=== PATIENT | female | born 1985 | race Caucasian/White ===

== ENCOUNTER 2017-05-15 13:51 | Emergency (ER) | payer OTHER ==
[~2017-05-15] VITALS: Ht 172.7 cm; Wt 50.1 kg
[~2017-05-15 13:51] MED LIST: ALBUTEROL SULF8.5 GM IH; ELMIRON100 MG PO; MEGACE20 MG PO; NITROFURANTOIN100 MG PO; PROVENTIL,2.5 MG/0.5 IH; SINGULAIR10 MG PO; SYNTHROID50 MCG PO
[2017-05-15] MEDS ORDERED: FLEXERIL10 MG PO (15:45)
[2017-05-15 16:34] VITALS: BP 102/53
== END 2017-05-15 16:36 | disposition home or self-care (01) ==
LOC: EME 13:51
DX: S16.1XXA Strain of muscle, fascia and tendon at neck level, initial encounter (principal); R51 Headache; R07.9 Chest pain, unspecified; V43.52XA Car driver injured in collision with other type car in traffic accident, initial encounter; Y92.410 Unspecified street and highway as the place of occurrence of the external cause
CPT/HCPCS: 70450; 71020; 72125; 93005; 99281; 99284